=== PATIENT | male | born 1950 | race Caucasian/White ===

== ENCOUNTER 2017-08-16 20:06 | Emergency (ER) | payer MEDICARE, MEDICAID, SELFPAY ==
[2017-08-16 20:09] VITALS: BP 152/92; PULSE 91; RESP 28; TEMP 37.1; O2SAT 92; BMI 31.6
[2017-08-16 20:39] VITALS: O2SAT 92
[2017-08-16 20:45] VITALS: PULSE 86; RESP 22; O2SAT 93
--- NOTE | 2017-08-16 20:47 | EKG12_ITS ---
Test Reason : Blood Pressure : / mmHG Vent. Rate : 077 BPM Atrial Rate : 077 BPM P-R Int : 160 ms QRS Dur : 084 ms QT Int : 364 ms P-R-T Axes : 067 -22 040 degrees QTc Int : 411 ms Normal sinus rhythm Normal ECG Confirmed by ANJU HERNANDEZ MD ([id number]), associate entertainment editor KAMRAN CARBALLO ([id number] on 08/19/2017 1:47:09 PM Referred By: TANMAY Confirmed By:ANJU HERNANDEZ MD
--- NOTE | 2017-08-16 20:47 | RAD_ITS ---
STUDY: X-RAY CHEST REASON FOR EXAM: Male, 66 years old. Dyspnea TECHNIQUE: Frontal and lateral views of the chest. COMPARISON: None. FINDINGS: The lungs are clear and expanded. There is no demonstrated pleural abnormality. Normal size heart. Normal mediastinum and eri. Normal visualized pulmonary arteries. Normal visualized aortic arch and descending thoracic aorta. Normal visualized thoracic spine. Normal visualized ribs, clavicles, and shoulders. There is no demonstrated abnormality of the visualized soft tissue structures of the upper abdomen. RAD/Chest PA and Lateral IMPRESSION: Normal x-ray examination of the chest. Electronically Signed: Jesse Doe MD at 22:19 EDT , Service support ,
[2017-08-16 21:07] VITALS: PULSE 74; RESP 16
[2017-08-16] MEDS: Ipratropium/Albuterol Sulfate 3 ML AMPUL.NEB INHALATION (21:08)
[2017-08-16 21:20] LABS: Absolute Lymphocyte Count 1.37 X10^3/ul (0.83-4.51); Absolute Neutrophil Count 4.1 X10^3/uL (2.0-7.7); Basophil# 0.08 X10^3/uL; Basophil% 1.2 % (0-1); Eosinophil# 0.23 X10^3/uL; Eosinophils% 3.4 % (0-5); Hematocrit 39.6 % (40-54); Hemoglobin 12.8 g/dl (13.0-16.5); Lymphocyte # 1.37 X10^3/ul (4.0); Lymphocyte % 20.1 % (19-41); Mean Corp Hgb Conc 32.3 g/gl (32-36); Mean Corpuscular Hgb 32.1 pg (27.0-32.0); Mean Corpuscular Volume 99.2 fL (80-94); Mean Platelet Vol. 10.1 fl (6.2-12.0); Monocyte# 0.94 X10^3/uL; Monocyte% 13.8 % (0-10); Neutrophil # 4.09 X10^3/uL (2.7-7.7); Neutrophil % 59.9 % (47-70); POSITIVE COUNT NO; POSITIVE DIFFERENTIAL NO; POSITIVE MORPHOLOGY NO; Platelet Count 167 K/mm3 (150-450); RBC Distribution Width CV 13.5 % (11.6-14.6); RBC Distribution Width SD 47.7 fl (35.1-43.9); Red Blood Count 3.99 M/mm3 (4.6-6.2); White Blood Count 6.8 K/mm3 (4.4-11.0)
[2017-08-16 21:29] LABS: Anion Gap 8 (5-15); BUN 24 mg/dL (7-18); BUN/Creat Ratio 20.9 RATIO (10-20); Calcium,Total 8.8 mg/dL (8.5-10.1); Chloride 106 mmol/L (98-107); Creatinine, Serum 1.15 mg/dL (0.70-1.30); EST Glomerular Filtration Rate 68 mL/min (>60); Est Glom Filt Rate - Afr Amer 82 mL/min (>60); Estimated Creatinine Clearance 54.96 ml/min; Glucose 131 mg/dL (74-106); Potassium 4.1 mmol/L (3.5-5.1); Sodium Level 142 mmol/L (136-145)
--- NOTE | 2017-08-16 22:32 | ED.VISSUMM ---
- ER Visit Summary Date of Service: 08/16/17 Chief Complaint: [Shortness of breath] History of Present Illness: The patient is a 66 M [presents to the emergency department with cough and shortness of breath ?2 weeks. Patient states that cough is productive at times of some green and yellow sputum. Patient's had subjective fever at home intermittently. Patient has had chills. Patient was seen at the urgent care today and sent to the ER for low O2 sat of 94%. Patient has a history of COPD, diabetes, and hypertension. Patient is not on home oxygen. Patient has been using his inhaler at home. Patient denies recent travel or surgery. Patient denies any chest pain. Physical Examination: HEENT-PERRLA, EOMI. Cranial nerves II through XII grossly intact. TMs clear. Mucous membranes moist. No adenopathy. Cardiovascular-regular rate and rhythm without murmur or ectopy Lungs-good aeration bilaterally. Patient has some faint rhonchi and expiratory wheezes bilaterally. No accessory muscle use or retractions. No conversational dyspnea. Abdomen-normoactive bowel sounds, soft, nontender, no rebound or rigidity, no peritoneal signs. Extremities-intact ?4, normal range of motion, normal pulses, atraumatic[] Test Results: [EKG obtained on arrival showed a sinus rhythm with a ventricular rate of 77 bpm with no acute ST segment changes. CBC with differential obtained showed a white blood cell count of 6.8, hemoglobin 12.8, hematocrit 40, platelets 167. Chemistries unremarkable. Influenza was negative. Chest x-ray was normal. Blood cultures were ordered initially those will be pending.] Emergency Department Course and Treatment: [] Patient was given a DuoNeb aerosol and Solu-Medrol 125 mg IV. She was started on doxycycline p.o. Treatment Plan: [Patient will be started on prednisone and doxycycline. Patient will be given a albuterol MDI. Patient will be given a prescription for Tesjasson Mcarthures.] Disposition: [Discharged to home in stable condition. Patient advised to return if increasing shortness of breath or condition should worsen in any way] Impression: [Asthmatic bronchitis] This note was generated with [employer] software. It may contain incorrect words, spelling, and punctuation that were not noted in review of the chart prior to signing ED Disposition - Plan for ED Patient: Chief Complaint: Shortness of Breath Referrals: Marco Antonio Ingram MD [Primary Care Provider] -
[2017-08-16] MEDS: MethylPREDNISolone 125 MG/2 ML Vial IV (22:33)
--- NOTE | 2017-08-16 22:35 | ED.DCSUM_ITS ---
- ER Visit Summary Date of Service: 08/16/17 Chief Complaint: [Shortness of breath] History of Present Illness: The patient is a 66 M [presents to the emergency department with cough and shortness of breath ?2 weeks. Patient states that cough is productive at times of some green and yellow sputum. Patient's had subjective fever at home intermittently. Patient has had chills. Patient was seen at the urgent care today and sent to the ER for low O2 sat of 94%. Patient has a history of COPD, diabetes, and hypertension. Patient is not on home oxygen. Patient has been using his inhaler at home. Patient denies recent travel or surgery. Patient denies any chest pain. Physical Examination: HEENT-PERRLA, EOMI. Cranial nerves II through XII grossly intact. TMs clear. Mucous membranes moist. No adenopathy. Cardiovascular-regular rate and rhythm without murmur or ectopy Lungs-good aeration bilaterally. Patient has some faint rhonchi and expiratory wheezes bilaterally. No accessory muscle use or retractions. No conversational dyspnea. Abdomen-normoactive bowel sounds, soft, nontender, no rebound or rigidity, no peritoneal signs. Extremities-intact ?4, normal range of motion, normal pulses, atraumatic[] Test Results: [EKG obtained on arrival showed a sinus rhythm with a ventricular rate of 77 bpm with no acute ST segment changes. CBC with differential obtained showed a white blood cell count of 6.8, hemoglobin 12.8, hematocrit 40 , platelets 167. Chemistries unremarkable. Influenza was negative. Chest x- ray was normal. Blood cultures were ordered initially those will be pending.] Emergency Department Course and Treatment: [] Patient was given a DuoNeb aerosol and Solu-Medrol 125 mg IV. She was started on doxycycline p.o. Treatment Plan: [Patient will be started on prednisone and doxycycline. Patient will be given a albuterol MDI. Patient will be given a prescription for Tesjasson Mcarthures.] Disposition: [Discharged to home in stable condition. Patient advised to return if increasing shortness of breath or condition should worsen in any way] Impression: [Asthmatic bronchitis] This note was generated with [employer] software. It may contain incorrect words, spelling, and punctuation that were not noted in review of the chart prior to signing ED Disposition - Plan for ED Patient: Chief Complaint: Shortness of Breath Referrals: Marco Antonio Ingram MD [Primary Care Provider] -
--- NOTE | 2017-08-16 22:36 | ED.DEP ---
ED Disposition - Plan for ED Patient: Chief Complaint: Shortness of Breath Instructions: ED Bronchitis Asthmatic Prescriptions: Benzonatate [Tessalon Perle] 200 mg PO TID PRN PRN #20 cap PRN Reason: Cough Doxycycline Monohydrate 100 mg PO BID #20 cap Prednisone [Deltasone] 20 mg PO BID #6 tab Referrals: Marco Antonio Ingram MD [Primary Care Provider] - 3-5 Days
[2017-08-16] MEDS: Doxycycline 100 MG CAPSULE PO (23:00)
[2017-08-16 23:05] VITALS: BP 148/74; PULSE 79; RESP 18; O2SAT 96
== END 2017-08-16 23:12 | disposition home or self-care (01) ==
LOC: ED 21:01
PROVIDERS: Emergency Provider Emergency Medicine; Family Provider Family Medicine; PCP Family Medicine
DX: J44.1 Chronic obstructive pulmonary disease with (acute) exacerbation (principal); E11.9 Type 2 diabetes mellitus without complications; I10 Essential (primary) hypertension; Z79.84 Long term (current) use of oral hypoglycemic drugs; Z79.899 Other long term (current) drug therapy; Z72.0 Tobacco use
CPT/HCPCS: 71046; 80048; 85025; 87040; 87804; 93005; 94640; 96374; 99285

== ENCOUNTER 2023-01-23 01:57 | Emergency (ER) | payer MEDICARE, MEDICAID, SELFPAY ==
[2023-01-23 02:00] VITALS: BP 139/88; PULSE 77; PULSE 84; RESP 20; TEMP 36.6; O2SAT 94; O2SAT 95; BMI 33.6
[2023-01-23 02:06] VITALS: BP 139/88; PULSE 77; RESP 18; TEMP 36.6; O2SAT 95
--- NOTE | 2023-01-23 02:33 | CT_ITS ---
INDICATION: Right-sided abdominal pain with diarrhea and nausea EXAMINATION: CT Abdomen And Pelvis W/ Contrast Injection TECHNIQUE: Helically acquired images were obtained of the abdomen and pelvis following IV contrast. 2-D reconstructions reviewed. A radiation dose optimization technique was used for this scan. IV Contrast dosage and agent: 100 cc [id number] Oral contrast: None. COMPARISON: None. FINDINGS: LOWER CHEST: Mild linear scarring right lower lobe. Normal size heart with coronary artery disease. LIVER: Fatty infiltration of liver with nodular contour compatible with cirrhosis. No discrete mass. GALLBLADDER AND BILIARY TREE: No calcified gallstones identified. No gallbladder wall edema demonstrated. No significant biliary ductal dilation. PANCREAS: Fatty infiltration with no discrete mass or peripancreatic edema. SPLEEN: Normal size without focal cystic or solid mass. ADRENAL GLANDS: Unremarkable. KIDNEYS AND URETERS: Normal renal size and position. No perinephric edema or hydronephrosis. No concerning lesion. Subcentimeter simple appearing right renal cyst requiring no additional follow-up at this time. PERITONEUM: No significant free fluid. No peritoneal free air detected. RETROPERITONEUM: No retroperitoneal mass or pathologic fluid collection. BOWEL: Normal appendix inferior to cecum within right lower quadrant. Several borderline dilated loops of small bowel present but no focal transition/obstruction detected. Mild thickening versus underdistention of sigmoid colon. No pericolonic fat stranding detected. Mild gastric wall thickening versus underdistention. LYMPH NODES: No enlarged mesenteric or retroperitoneal lymph nodes. VESSELS: Atherosclerosis with focal aneurysmal dilatation of infrarenal aorta measuring up to 3.2 cm diameter. Mild aneurysmal dilatation of common iliac arteries, measuring up to 2 cm diameter on the left. URINARY BLADDER: Unremarkable as visualized. REPRODUCTIVE ORGANS: No pelvic masses. ABDOMINAL WALL: No acute findings or significant hernia defect. BONES: Degenerative disc space narrowing and vacuum disc changes at L4-5 and L5-S1. CT/Abdomen/Pelvis W IV Cont ONLY IMPRESSION: 1. Equivocal mild thickening versus underdistention of stomach and sigmoid colon. Correlate clinically for symptoms of gastritis and colitis. Follow-up as clinically warranted. 2. Borderline dilated loops of small bowel may represent mild ileus versus enteritis. 3. Cirrhotic and steatotic liver. Pancreatic steatosis also noted. 4. Mild 3.2 cm aneurysmal dilatation of infrarenal aorta. 5. Other nonurgent findings within body of report. Electronically Signed: Kenyon Blackwood MD at 5:04 EDT ,
[2023-01-23] MEDS: HYDROmorphone 0.5 MG/0.5 ML SYRINGE IV ×2 (02:51→04:22)
[2023-01-23] MEDS: Ondansetron 4 MG/2 ML Vial IV (02:52)
[2023-01-23] MEDS: 0.9% Normal Saline 1,000 ML 999 ML IV (02:52)
[2023-01-23 02:59] LABS: Absolute Lymphocyte Count 1.23 X10^3/uL (0.83-4.51); Absolute Neutrophil Count 6.3 X10^3/uL (2.0-7.7); Basophil# 0.08 X10^3/uL; Eosinophil# 0.14 X10^3/uL; Eosinophils% 1.7 % (0-5); Hematocrit 44.9 % (40-54); Hemoglobin 14.8 g/dL (13.0-16.5); Lymphocyte # 1.23 X10^3/ul (0.83-4.51); Lymphocyte % 14.6 % (19-41); Mean Corpuscular Hgb 31.8 pg (27.0-32.0); Mean Corpuscular Volume 96.4 fL (80-94); Mean Platelet Vol. 10.5 fl (6.2-12.0); Monocyte# 0.58 X10^3/uL; Monocyte% 6.9 % (0-10); NRBC Flagged by Analyzer 0 % (0-5); Neutrophil # 6.34 X10^3/uL (2.7-7.7); Neutrophil % 75.3 % (47-70); Platelet Count 231 K/mm3 (150-450); RBC Distribution Width CV 14.1 % (11.6-14.6); RBC Distribution Width SD 49.9 fl (35.1-43.9); Red Blood Count 4.66 M/mm3 (4.6-6.2); White Blood Count 8.4 K/mm3 (4.4-11.0)
--- NOTE | 2023-01-23 03:23 | EDS_ITS ---
HPI History of Present Illness Chief Complaint: Abd Pain Informant: patient Narrative Narrative: Patient is a 72-year-old male with past medical history of diabetes as well as hypertension and COPD. He states he has had loose stool/diarrhea for 10 to 14 days. He denies any new medications or sick contacts he denies any travel outside the country or recent antibiotic use. He states that this evening he decided to eat rice covered and cheese and a type of dressing and after doing so noticed pain more so in the right upper quadrant to mid epigastric region. He states that he has Vicodin secondary to chronic arthritis pain and took 1 of these without any symptom improvement and therefore comes in for evaluation [facility] Medical History COPD (chronic obstructive pulmonary disease) Diabetes HTN (hypertension) Home Medications albuterol sulfate 90 mcg/actuation aerosol inhaler (Ventolin HFA) 1 puff inhalation Q4H PRN PRN Wheezing 08/16/17 [History Last Taken Unknown] amlodipine 5 mg tablet 5 mg PO DAILY 08/16/17 [History Last Taken Unknown] benzonatate 100 mg capsule 200 mg (2 x 100 mg) PO TID PRN PRN Cough #20 caps 08/16/17 [Rx Last Taken Unknown] doxycycline monohydrate 100 mg capsule 100 mg PO BID #20 caps 08/16/17 [Rx Last Taken Unknown] hydrocodone 10 mg-acetaminophen 325 mg tablet 1 ea PO Q4H PRN Pain 08/16/17 [History Last Taken Unknown] metformin 500 mg tablet 500 mg PO BID 08/16/17 [History Last Taken Unknown] pioglitazone 15 mg tablet 15 mg PO DAILY 08/16/17 [History Last Taken Unknown] prednisone 20 mg tablet 20 mg PO BID #6 tabs 08/16/17 [Rx Last Taken Unknown] valsartan 160 mg tablet 160 mg PO DAILY 08/16/17 [History Last Taken Unknown] Allergy/AdvReac Type Severity Reaction Status Date / Time codeine Allergy Nausea Verified 01/23/23 02:10 oxycodone AdvReac EMESIS Verified 01/23/23 02:10 Social History Smoking Status: Current every day smoker tobacco type: cigarettes ROS ROS ED Constitutional Constitutional ED: Denies chills or fever(s) ENT ENT ED: Denies sore throat Cardiovascular Cardiovascular: Denies chest pain Respiratory/Chest Respiratory/Chest: Reports cough; Denies dyspnea Gastrointestinal Gastrointestinal: Reports abdominal pain, diarrhea and nausea; Denies vomiting Genitourinary Genitourinary ED: Denies dysuria Musculoskeletal Musculoskeletal: Reports arthralgias Integumentary Denies rash Neurologic Neurologic: Denies headache(s) Hematologic/Lymphatic Hematologic/Lymphatic: Denies easy bleeding or easy bruising EXAM Physical Exam Const Vital Signs: 01/23/23 02:00 01/23/23 02:00 01/23/23 02:06 Temperature 98 F 98 F 98 F Temperature Source Oral Temporal Temporal Pulse Rate 84 77 77 Respiratory Rate 20 H 20 H 18 Blood Pressure 139/88 H 139/88 H 139/88 H Blood Pressure Mean 105 105 105 Pulse Ox 94 95 95 Oxygen Delivery Method Room Air Room Air Room Air 01/23/23 04:00 Temperature Temperature Source Pulse Rate 83 Respiratory Rate 16 Blood Pressure 171/91 H Blood Pressure Mean 117 Pulse Ox 98 Oxygen Delivery Method Positive well nourished and well developed General Appearance ED: well developed HEENT Reports moist mucous membranes HEENT Narrative: No signs of infection noted in the posterior pharynx Eyes PERRL and EOMs intact bilaterally General Eye ED: Negative for scleral icterus Neck supple and no JVD Resp normal respiratory effort Resp Narrative: Breath sounds are diminished throughout with diffuse expiratory wheeze consistent with history of COPD No signs of respiratory distress however Cardio regular rate and regular rhythm Rate: other Other Details: Radial and carotid pulses are equal and symmetric GI non-distended GI Narrative: Abdomen is soft and nondistended with hyperactive bowel sounds. Patient has pain with palpation in the midepigastric and right upper quadrant. No voluntary guarding or rigidity. No pulsatile mass or fluid wave. Negative Adame sign. Auscultation: hyperactive bowel sounds Palpation: soft Back/Spine no CVA tenderness Extremity normal to inspection Extremity Narrative: Negative Homans' sign bilaterally Neuro oriented x3, CN's II-XII intact bilaterally and no sensory deficits noted Sensorium / Orientation: alert Motor Exam: strength 5/5 throughout Psych mental status grossly normal Skin no rashes or lesions noted General Skin Exam: Negative for jaundice MDM MDM MDM Narrative Medical decision making narrative: Patient presented to the ER hypertensive but has a past medical history of this and otherwise with stable vitals. He reported that he had increasing abdominal pain this evening/morning which is why he presented to the ER. He stated the pain began after eating food that had a higher fat content. With the pain localized more to the midepigastric and right upper quadrant region there is high likelihood this could be biliary colic versus cholecystitis versus pancreatitis. With report of persistent diarrhea there is also concern he is got an infectious diarrhea or inflammatory colitis. Basic blood work was obtained and shows no white count or lactic acidosis liver enzymes revealed no clinically significant findings and his lipase is normal at 50. CT scan revealed no signs of acute cholecystitis or bowel obstruction. It did document potential ileus but patient's been having liquidy bowel movements which goes against this. His intestines are inflamed on CT scan and he has had persistent diarrhea but this could all be inflammatory or secretory and not necessarily bacterial and therefore I do not feel there is need to provide antibiotics until a stool sample can be obtained. On reevaluation the patient is resting comfortably and his abdomen remains soft and nonsurgical and his pain has resolved after treatment. At this time I do feel he will require outpatient ultrasound and/or HIDA scan to further assess his gallbladder but as he does not have signs of acute cholecystitis this can be done on an outpatient basis especially as his pain has been resolved and therefore he can be discharged home and follow-up with general surgery as an outpatient History & Record Review Discussion w/independent historian: Patient Lab Data Attestation: I reviewed the patient's lab results. Labs: Laboratory Results - last 24 hr 01/23/23 02:20 WBC 8.4 RBC 4.66 Hgb 14.8 Hct 44.9 MCV 96.4 H MCH 31.8 MCHC 33.0 RDW Std Deviation 49.9 H RDW Coeff of Jordan 14.1 Plt Count 231 MPV 10.5 Immature Gran % (Auto) 0.500 Neut % (Auto) 75.3 H Lymph % (Auto) 14.6 L Kaufman % (Auto) 6.9 Eos % (Auto) 1.7 Baso % (Auto) 1.0 Absolute Neuts (auto) 6.3 Absolute Lymphs (auto) 1.23 Nucleated RBC % 0 Sodium 138 Potassium 4.5 Chloride 105 Carbon Dioxide 25.0 Anion Gap 8 BUN 24 H Creatinine 1.38 H Estim Creat Clear Calc 42.09 Est GFR (MDRD) Af Amer 65 Est GFR (MDRD) Non-Af 54 L BUN/Creatinine Ratio 17.4 Glucose 173 H Lactic Acid 0.9 Calcium 10.0 Total Bilirubin 0.40 Direct Bilirubin 0.08 AST 13 L ALT 20 Alkaline Phosphatase 82 Total Protein 8.5 H Albumin 4.0 Globulin 4.5 H Lipase 50 Radiography Diagnostic Testing: Clinical Impression(s) from Imaging Studies Abdomen/Pelvis CT 01/23/23 02:33 IMPRESSION: 1. Equivocal mild thickening versus underdistention of stomach and sigmoid colon. Correlate clinically for symptoms of gastritis and colitis. Follow-up as clinically warranted. 2. Borderline dilated loops of small bowel may represent mild ileus versus enteritis. 3. Cirrhotic and steatotic liver. Pancreatic steatosis also noted. 4. Mild 3.2 cm aneurysmal dilatation of infrarenal aorta. 5. Other nonurgent findings within body of report. Electronically Signed: Kenyon Blackwood MD at 5:04 EDT , Discharge Plan Triage Chief Complaint: Abd Pain ED Provider: Destin French Dx/Rx/DC Orders Clinical Impression: Diarrhea, Gastritis, Biliary colic, Non-insulin dependent diabetes mellitus, Hypertension Instructions: Treating Diarrhea, ED Gallstones with Biliary Colic Prescriptions: No Action pioglitazone 15 MG tablet 15 mg PO DAILY metformin 500 MG tablet 500 mg PO BID amlodipine 5 MG tablet 5 mg PO DAILY hydrocodone-acetaminophen 1 EACH tablet 1 ea PO Q4H PRN (Reason: Pain) albuterol sulfate [Ventolin HFA] 1 INHALER inhaler 1 puff inhalation Q4H PRN PRN (Reason: Wheezing) valsartan 160 MG tablet 160 mg PO DAILY doxycycline monohydrate 100 MG capsule 100 mg PO BID Qty: 20 0RF prednisone 20 MG tablet 20 mg PO BID Qty: 6 0RF Rx Instructions: With food benzonatate 100 MG capsule 200 mg PO TID PRN PRN (Reason: Cough) Qty: 20 0RF Other Ambulatory Orders: Gallbladder (Routine) Facility: [facility] - Location: [facility] Ordered By: Dr. Destin French Primary Care Provider: Marco Antonio Ingram Referrals: Marco Antonio Ingram MD [Primary Care Provider] - Ashleigh Francis MD [Med Staff - Active Staff] - Activity Restrictions/Additional Instructions: Please obtain your outpatient gallbladder ultrasound to further assess the cause of your abdominal pain. Also follow-up with general surgery to discuss potential gallbladder removal and/or HIDA scan if necessary. Please also discuss with your family physician about obtaining stool sample studies based on your persistent diarrhea. Eat smaller more frequent meals that are bland in nature and stay away from greasy or fatty foods as this could exacerbate your symptoms. If you have any further concerns please return for repeat evaluation Disposition Disposition: Home, Self Care
[2023-01-23 03:40] LABS: Lactic Acid 0.9 mmol/L (0.4-1.9)
[2023-01-23 03:44] LABS: AST(SGOT) 13 U/L (15-37); Alanine Aminotransfer ALT/SGPT 20 U/L (16-61); Alkaline Phosphatase 82 U/L (45-117); Anion Gap 8 (5-15); BUN 24 mg/dL (7-18); BUN/Creat Ratio 17.4 RATIO (10-20); Bilirubin, Direct 0.08 mg/dL (0.00-0.30); Chloride 105 mmol/L (98-107); Creatinine, Serum 1.38 mg/dL (0.70-1.30); EST Glomerular Filtration Rate 54 mL/min (>60); Est Glom Filt Rate - Afr Amer 65 mL/min (>60); Estimated Creatinine Clearance 42.09 ml/min; Globulin 4.5 g/dL (2.2-4.2); Glucose 173 mg/dL (74-106); Lipase 50 U/L (13-75); Potassium 4.5 mmol/L (3.5-5.1); Protein, Total 8.5 g/dL (6.4-8.2); Sodium Level 138 mmol/L (136-145)
[2023-01-23 04:00] VITALS: BP 171/91; PULSE 83; RESP 16; O2SAT 98
[2023-01-23] MEDS: Mag Hydrox/Al Hydrox/Simeth 30 ML UDC PO (04:26)
[2023-01-23] MEDS: Famotidine 200 MG/20 ML MDV 20 MG in 0.9% Normal Saline (Pres. free 8 ML 300 MG IV (04:27)
[2023-01-23 05:30] VITALS: BP 145/90
== END 2023-01-23 05:31 | disposition home or self-care (01) ==
PROVIDERS: Emergency Provider Emergency Medicine; PCP Family Medicine; Visit Provider Emergency Medicine
DX: K29.70 Gastritis, unspecified, without bleeding (principal); J44.9 Chronic obstructive pulmonary disease, unspecified; E11.9 Type 2 diabetes mellitus without complications; R19.7 Diarrhea, unspecified; F17.210 Nicotine dependence, cigarettes, uncomplicated; I10 Essential (primary) hypertension; K80.50 Calculus of bile duct without cholangitis or cholecystitis without obstruction; Z79.899 Other long term (current) drug therapy; Z79.84 Long term (current) use of oral hypoglycemic drugs
CPT/HCPCS: 74177; 80048; 80076; 83605; 83690; 85025; 96361; 96365; 96375; 96376; 99284; Q9967; A4216; J2405; J3490

== ENCOUNTER 2023-09-26 20:41 | Inpatient (IN) | payer MEDICARE, MEDICAID, SELFPAY ==
[2023-09-26 20:42] VITALS: BP 126/86; PULSE 78; RESP 20; TEMP 36.4; O2SAT 92; BMI 32.7
--- NOTE | 2023-09-26 20:46 | EKG12_ITS ---
Test Reason : DYSRHYTHMIA Blood Pressure : / mmHG Vent. Rate : 074 BPM Atrial Rate : 074 BPM P-R Int : 168 ms QRS Dur : 094 ms QT Int : 370 ms P-R-T Axes : 053 -28 052 degrees QTc Int : 410 ms Normal sinus rhythm Incomplete right bundle branch block Borderline ECG Confirmed by DAVID JOHN, ANJU ([id number]), publication editor MARLENE MOE ([id number]) on 09/29/2023 11:36:34 AM Referred By: LINNEA Confirmed By:ANJU HERNANDEZ MD
[2023-09-26 20:55] VITALS: O2SAT 94
[2023-09-26 21:05] LABS: Absolute Lymphocyte Count 2.14 X10^3/uL (0.83-4.51); Absolute Neutrophil Count 3.7 X10^3/uL (2.0-7.7); Basophil# 0.09 X10^3/uL; Basophil% 1.3 % (0-1); Eosinophil# 0.29 X10^3/uL; Eosinophils% 4.2 % (0-5); Hematocrit 41.6 % (40-54); Hemoglobin 13.4 g/dL (13.0-16.5); Lymphocyte # 2.14 X10^3/ul (0.83-4.51); Lymphocyte % 30.9 % (19-41); Mean Corp Hgb Conc 32.2 g/dL (32-36); Mean Corpuscular Hgb 31.5 pg (27.0-32.0); Mean Corpuscular Volume 97.7 fL (80-94); Mean Platelet Vol. 9.7 fl (6.2-12.0); Monocyte# 0.64 X10^3/uL; Monocyte% 9.2 % (0-10); NRBC Flagged by Analyzer 0 % (0-5); Neutrophil # 3.71 X10^3/uL (2.7-7.7); Neutrophil % 53.7 % (47-70); Platelet Count 235 K/mm3 (150-450); RBC Distribution Width CV 14.4 % (11.6-14.6); Red Blood Count 4.26 M/mm3 (4.6-6.2); White Blood Count 6.9 K/mm3 (4.4-11.0)
--- NOTE | 2023-09-26 21:07 | ED.VIS.DYS ---
HPI History of Present Illness Chief Complaint: Shortness of Breath Narrative Narrative: 72-year-old male presenting with shortness of breath. Patient states he is chronically short of breath due to smoking and asthma. Patient states that over the last week or so he has been more short of breath with exertion. He states that he gets short of breath now just walking to the bathroom or into the kitchen. He states his pulse ox is staying in the 90s but when he walks he gets a headache and gets a sharp pain in his chest and he states he has to sit down for 10 to 15 minutes to recover. Patient denies lower extremity edema but may have some swelling in the abdomen. Patient denies history of CHF. He does have a history of COPD/asthma. Patient denies fever, chills. [facility] Medical History COPD (chronic obstructive pulmonary disease) Diabetes HTN (hypertension) Home Medications albuterol sulfate 90 mcg/actuation aerosol inhaler (Ventolin HFA) 1 puff inhalation Q4H PRN PRN Wheezing 08/16/17 [History Last Taken Unknown] amlodipine 5 mg tablet 5 mg PO DAILY 08/16/17 [History Last Taken Unknown] benzonatate 100 mg capsule 200 mg (2 x 100 mg) PO TID PRN PRN Cough #20 caps 08/16/17 [Rx Last Taken Unknown] doxycycline monohydrate 100 mg capsule 100 mg PO BID #20 caps 08/16/17 [Rx Last Taken Unknown] hydrocodone 10 mg-acetaminophen 325 mg tablet 1 ea PO Q4H PRN Pain 08/16/17 [History Last Taken Unknown] metformin 500 mg tablet 500 mg PO BID 08/16/17 [History Last Taken Unknown] pioglitazone 15 mg tablet 15 mg PO DAILY 08/16/17 [History Last Taken Unknown] prednisone 20 mg tablet 20 mg PO BID #6 tabs 08/16/17 [Rx Last Taken Unknown] valsartan 160 mg tablet 160 mg PO DAILY 08/16/17 [History Last Taken Unknown] Allergy/AdvReac Type Severity Reaction Status Date / Time codeine Allergy Nausea Verified 09/26/23 20:42 oxycodone AdvReac EMESIS Verified 09/26/23 20:42 Social History Smoking Status: Current every day smoker tobacco type: cigarettes ROS ROS ED Constitutional Constitutional ED: Denies chills, fever(s) or sweats Eyes Eyes: Denies blurry vision or change in vision ENT ENT ED: Denies ear pain or sore throat Cardiovascular Cardiovascular: Denies chest pain, palpitations or racing heartbeat Respiratory/Chest Respiratory/Chest: Reports dyspnea and dyspnea on exertion; Denies cough or sputum Gastrointestinal Gastrointestinal: Denies abdominal pain, constipation, diarrhea, nausea or vomiting Genitourinary Genitourinary ED: Denies dysuria, hematuria or urinary frequency Musculoskeletal Musculoskeletal: Denies arthralgias, myalgias or neck pain Integumentary Denies abscess, Abrasions or rash Neurologic Neurologic: Denies headache(s), paresthesias or weakness Psychiatric Psychiatric: Denies anxiety, depression, suicidal ideation or suicidal thoughts Endocrine Endocrinology: Denies polydipsia or polyuria EXAM Physical Exam Const Vital Signs: 09/26/23 20:42 09/26/23 20:54 09/26/23 20:55 Temperature 97.6 F L Temperature Source Temporal Pulse Rate 78 Respiratory Rate 20 H Respiratory Effort Short of Breath Respiratory Depth Normal Blood Pressure 126/86 H Blood Pressure Mean 99 Pulse Ox 92 Oxygen Delivery Method Room Air Room Air Room Air 09/26/23 21:52 09/26/23 23:00 Temperature Temperature Source Pulse Rate 67 63 Respiratory Rate 25 H 18 Respiratory Effort Respiratory Depth Blood Pressure 118/76 98/65 Blood Pressure Mean 90 76 Pulse Ox 92 91 Oxygen Delivery Method Room Air Room Air Positive well nourished General Appearance ED: NAD; Negative for pallor HEENT Reports moist mucous membranes Eyes PERRL and EOMs intact bilaterally Resp normal respiratory effort Auscultation: diminished lung sounds bilateral lower Cardio regular rate and regular rhythm GI non-tender and non-distended Extremity normal to inspection General Extremety ED: Yes edema General Extremity: edema Neuro oriented x3 and CN's II-XII intact bilaterally Sensorium / Orientation: alert Motor Exam: strength 5/5 throughout Psych mental status grossly normal Skin no wounds General Skin Exam: Negative for jaundice or pallor MDM MDM MDM Narrative Medical decision making narrative: Patient presented with shortness of breath on exertion. It has really been worse over the last week. He has history of COPD but does not feel like he is wheezing. No fevers or chills. No cough. Differential includes ACS, CHF, pneumonia, COVID, influenza, RSV, dehydration, anemia, electro abnormalities. IV line was established. CBC was obtained to assess white blood cell count, hemoglobin, platelets. BMP to assess renal function, electrolytes, glucose. High-sensitivity troponin and EKG to assess for ischemia/dysrhythmia. BNP to assess for CHF. CBC shows normal white blood cell count 6.9. Hemoglobin 13.4. Platelets are 235. Creatinine 1.70. His baseline creatinine is 1.38. High-sensitivity troponin 7. BNP 12.4. Chest x-ray on my interpretation shows no acute cardiopulmonary process. The radiologist interprets this and agrees. Patient was ambulated and pulse ox dropped to 80% on room air and he became very dyspneic and it took him about 2 minutes to get back up to 90. Given this we did obtain a CTA which does not show evidence of PE or dissection however it does show findings suggestion of a right bronchopneumonia. Patient will be given Rocephin and azithromycin. Discussed with hospitalist for admission. He will be given IV fluids now that his cardiac workup is normal. Impression: 1. Hypoxic respiratory failure 2. Bronchopneumonia Lab Data Attestation: I reviewed the patient's lab results. Labs: Laboratory Results - last 24 hr 09/26/23 20:57 WBC 6.9 RBC 4.26 L Hgb 13.4 Hct 41.6 MCV 97.7 H MCH 31.5 MCHC 32.2 RDW Std Deviation 52.0 H RDW Coeff of [place] 14.4 Plt Count 235 MPV 9.7 Immature Gran % (Auto) 0.700 Neut % (Auto) 53.7 Lymph % (Auto) 30.9 [place] % (Auto) 9.2 Eos % (Auto) 4.2 Baso % (Auto) 1.3 H Absolute Neuts (auto) 3.7 Absolute Lymphs (auto) 2.14 Nucleated RBC % 0 Sodium 136 Potassium 4.6 Chloride 105 Carbon Dioxide 28.0 Anion Gap 3 L BUN 24 H Creatinine 1.70 H Estim Creat Clear Calc 39.53 Est GFR (MDRD) Af Amer 51 L Est GFR (MDRD) Non-Af 42 L BUN/Creatinine Ratio 14.1 Glucose 148 H Calcium 9.7 Troponin I High Sens 7 B-Natriuretic Peptide 12.4 Radiography Diagnostic Testing: Clinical Impression(s) from Imaging Studies Chest X-Ray 09/26/23 21:12 IMPRESSION: No radiographic evidence of acute cardiopulmonary disease. Electronically Signed: Duane MendosaChandler Nelson DO at 21:28 EDT , Chest CTA 09/26/23 22:03 IMPRESSION: 1. No evidence of pulmonary artery embolus. 2. Subtle lobulations of the hepatic capsule suggesting cirrhosis. 3. Findings suggestive of a bronchopneumonia on the right. Electronically Signed: Duane VChandler Nelson DO at 23:06 EDT , Discharge Plan Triage Chief Complaint: Shortness of Breath ED Provider: Santi Figueroa Dx/Rx/DC Orders Prescriptions: No Action pioglitazone 15 MG tablet 15 mg PO DAILY metformin 500 MG tablet 500 mg PO BID amlodipine 5 MG tablet 5 mg PO DAILY hydrocodone-acetaminophen 1 EACH tablet 1 ea PO Q4H PRN (Reason: Pain) albuterol sulfate [Ventolin HFA] 1 INHALER inhaler 1 puff inhalation Q4H PRN PRN (Reason: Wheezing) valsartan 160 MG tablet 160 mg PO DAILY doxycycline monohydrate 100 MG capsule 100 mg PO BID Qty: 20 0RF prednisone 20 MG tablet 20 mg PO BID Qty: 6 0RF Rx Instructions: With food benzonatate 100 MG capsule 200 mg PO TID PRN PRN (Reason: Cough) Qty: 20 0RF Primary Care Provider: Marco Antonio Ingram Referrals: Marco Antonio Ingram MD [Primary Care Provider] -
--- NOTE | 2023-09-26 21:12 | RAD_ITS ---
EXAM: XR CHEST, 1 VIEW CLINICAL INDICATION: chest pain TECHNIQUE: Frontal view of the chest. COMPARISON: No relevant prior studies available. FINDINGS: LUNGS AND PLEURAL SPACES: No significant abnormality. No consolidation or edema. No pneumothorax. No effusion. HEART: No significant abnormality. Cardiac silhouette not enlarged. MEDIASTINUM: Central airways and mediastinal contour are unremarkable. BONES/JOINTS: No significant abnormality. No acute fracture. SOFT TISSUES: No significant abnormality. RAD/Chest 1 View (Portable) IMPRESSION: No radiographic evidence of acute cardiopulmonary disease. Electronically Signed: Duane Nelson DO at 21:28 EDT ,
[2023-09-26 21:24] LABS: Anion Gap 3 (5-15); BUN 24 mg/dL (7-18); BUN/Creat Ratio 14.1 RATIO (10-20); Calcium,Total 9.7 mg/dL (8.5-10.1); Chloride 105 mmol/L (98-107); EST Glomerular Filtration Rate 42 mL/min (>60); Est Glom Filt Rate - Afr Amer 51 mL/min (>60); Estimated Creatinine Clearance 39.53 ml/min; Glucose 148 mg/dL (74-106); Potassium 4.6 mmol/L (3.5-5.1); Sodium Level 136 mmol/L (136-145); Troponin-I HS 7 pg/mL (3.0-78.0)
[2023-09-26 21:37] LABS: BNP,B-Type NATRIURETIC PEPTIDE 12.4 pg/mL (0-100)
[2023-09-26 21:52] VITALS: BP 118/76; PULSE 67; RESP 25; O2SAT 92
--- NOTE | 2023-09-26 22:03 | CT_ITS ---
EXAM: CT ANGIOGRAPHY CHEST WITHOUT AND WITH INTRAVENOUS CONTRAST CLINICAL INDICATION: dypsnea TECHNIQUE: Helically acquired angiography images were obtained of the chest without and with intravenous contrast. This CT exam was performed using one or more of the following dose reduction techniques: automated exposure control, adjustment of the mA and/or kV according to patient size, and/or use of iterative reconstruction technique. MIP reconstructed images were created and reviewed. CONTRAST: IV 100mL [id number] COMPARISON: Chest radiograph on the same date. FINDINGS: PULMONARY ARTERIES: No significant abnormality. Normal in caliber. No evidence of pulmonary embolism. AORTA: Atherosclerosis of the aorta and its branch vessels. Normal in caliber. No evidence of dissection. GREAT VESSELS OF AORTIC ARCH: No significant abnormality. Normal in caliber. No evidence of dissection. LUNGS AND PLEURAL SPACES: Scattered alveolar opacities in the right middle and right lower lobe. Right lower lobe and right middle lobe peribronchial thickening and to a lesser extent in the right upper lobe. Minimal intraluminal filling defects are identified particularly in the right lower lobe bronchi. No mass. No pleural effusion or thickening. No pneumothorax. HEART: Coronary artery calcifications. Heart size is normal. No pericardial effusion. MEDIASTINUM: No significant abnormality. No mediastinal or hilar adenopathy. Esophagus is unremarkable. No hiatal hernia. THYROID: No significant abnormality. No thyroid lesions. BONES/JOINTS: No significant abnormality. No suspicious lytic or blastic abnormality. LIVER: Subtle lobulations of the hepatic capsule suggesting cirrhosis. CT/CTA Chest W/WO Contrast IMPRESSION: 1. No evidence of pulmonary artery embolus. 2. Subtle lobulations of the hepatic capsule suggesting cirrhosis. 3. Findings suggestive of a bronchopneumonia on the right. Electronically Signed: Duane Nelson DO at 23:06 EDT ,
[2023-09-26 23:00] VITALS: BP 98/65; PULSE 63; RESP 18; O2SAT 91
--- NOTE | 2023-09-26 23:40 | HP.PCM_ITS ---
[facility] - General General Date of Admission: 09/26/23 Date of Service: 09/26/23 Chief Complaint: Shortness of breath [facility] Narrative KENIA CHIU, is a 72 M who presents to the emergency room with chief complaint of shortness of breath. Patient states that over the past week he has progressively become more short of breath. He has a significant past medical history of asthma/COPD and is a smoker. Today he notified his primary care physician of symptoms and was instructed to proceed to the emergency room. CT angiogram of the chest shows a right bronco pneumonia with elevated white blood cell count. Patient walks for any length of time and desaturates to 84% and took over 2 minutes to recover to oxygen saturation greater than 90%. He will be admitted to general medical floor treated for community-acquired pneumonia. [facility] Medical History (Updated 09/26/23 @ 23:[address] Jaiden Weathers MD) COPD (chronic obstructive pulmonary disease) Diabetes HTN (hypertension) Home Medications albuterol sulfate 90 mcg/actuation aerosol inhaler (Ventolin HFA) 1 puff inhalation Q4H PRN PRN Wheezing 08/16/17 [History Last Taken 09/26/23] amlodipine 5 mg tablet 5 mg PO DAILY 08/16/17 [History Last Taken 09/26/23] hydrocodone 10 mg-acetaminophen 325 mg tablet 1 ea PO Q4H PRN Pain 08/16/17 [History Last Taken 09/26/23] metformin 500 mg tablet 500 mg PO BID 08/16/17 [History Last Taken 09/26/23] valsartan 160 mg tablet 160 mg PO DAILY 08/16/17 [History Last Taken 09/25/23] fluticasone propionate 230 mcg-salmeterol 21 mcg/actuation HFA inhaler (Advair HFA) 2 puff inhalation BID 09/26/23 [History Last Taken 09/26/23] pioglitazone 45 mg tablet 45 mg PO DAILY 09/26/23 [History Last Taken 09/26/23] tiotropium bromide 2.5 mcg/actuation mist for inhalation (Spiriva Respimat) 2 puff inhalation DAILY 09/26/23 [History Last Taken 09/26/23] Allergy/AdvReac Type Severity Reaction Status Date / Time codeine Allergy Nausea Verified 09/26/23 20:42 oxycodone AdvReac EMESIS Verified 09/26/23 20:42 Social History Smoking Status: Current every day smoker tobacco type: cigarettes ROS Constitutional Constitutional: Reports fatigue; Denies chills or fever(s) Eyes Eyes: Denies change in vision ENT HEENT: Denies abnormal hearing Respiratory/Chest Respiratory/Chest: Reports cough, shortness of breath with exertion and wheezing Gastrointestinal Gastrointestinal: Denies abdominal pain Genitourinary Genitourinary: Denies dysuria Musculoskeletal Musculoskeletal: Denies back pain Neurologic Neurologic: Denies abnormal gait or abnormal speech Psychiatric Psychiatric: Denies anxiety Endocrine Endocrinology: Denies polydipsia Vital Signs Vital Signs Vital Signs: 09/26/23 20:42 09/26/23 20:54 09/26/23 20:55 Temperature 97.6 F L Temperature Source Temporal Pulse Rate 78 Respiratory Rate 20 H Respiratory Effort Short of Breath Respiratory Depth Normal Blood Pressure 126/86 H Blood Pressure Mean 99 Pulse Ox 92 Oxygen Delivery Method Room Air Room Air Room Air 09/26/23 21:52 09/26/23 23:00 Temperature Temperature Source Pulse Rate 67 63 Respiratory Rate 25 H 18 Respiratory Effort Respiratory Depth Blood Pressure 118/76 98/65 Blood Pressure Mean 90 76 Pulse Ox 92 91 Oxygen Delivery Method Room Air Room Air Weight Weight: 196 lb 6.4 oz Body Mass Index (BMI) 32.7 Physical Exam Const alert and oriented x3 General Appearance: cooperative and well developed HEENT normocephalic and head/scalp atraumatic Eyes PERRL and EOMs intact bilaterally Neck no lymphadenopathy Lymph Lymphatic: no lymphadenopathy noted Resp Auscultation: rhonchi right upper and wheezes Cardio regular rate, regular rhythm, S1 normal heart sound and S2 normal heart sound GI normal to inspection, nondistended, normoactive bowel sounds Extremity normal capillary refill Skin General Skin Exam: no breakdown Neuro no focal motor deficits and no sensory deficits noted Psych thought process normal, cooperative and affect normal Appearance: appropriate Results Lab / Micro Data 09/26/23 20:57 09/26/23 20:57 Labs: Laboratory Results - last 24 hr 09/26/23 20:57: WBC 6.9, RBC 4.26 L, Hgb 13.4, Hct 41.6, MCV 97.7 H, MCH 31.5, MCHC 32.2, RDW Std Deviation 52.0 H, RDW Coeff of [place] 14.4, Plt Count 235, MPV 9.7, Immature Gran % (Auto) 0.700, Neut % (Auto) 53.7, Lymph % (Auto) 30.9, [place] % (Auto) 9.2, Eos % (Auto) 4.2, Baso % (Auto) 1.3 H, Absolute Neuts (auto) 3.7, Absolute Lymphs (auto) 2.14, Nucleated RBC % 0, Sodium 136, Potassium 4.6, Chloride 105, Carbon Dioxide 28.0, Anion Gap 3 L, BUN 24 H, Creatinine 1.70 H, Estim Creat Clear Calc 39.53, Est GFR (MDRD) Af Amer 51 L, Est GFR (MDRD) Non-Af 42 L, BUN/Creatinine Ratio 14.1, Glucose 148 H, Calcium 9.7, Troponin I High Sens 7, B-Natriuretic Peptide 12.4 Micro: Microbiology 09/26/23 21:31 Mucosa - Nose SARS-CoV-2, Influenza & RSV (PCR) - Final Imaging Radiology Impression Chest X-Ray 09/26/23 21:12 IMPRESSION: No radiographic evidence of acute cardiopulmonary disease. Electronically Signed: Duane Nelson DO at 21:28 EDT , Chest CTA 09/26/23 22:03 IMPRESSION: 1. No evidence of pulmonary artery embolus. 2. Subtle lobulations of the hepatic capsule suggesting cirrhosis. 3. Findings suggestive of a bronchopneumonia on the right. Electronically Signed: Duane Nelson DO at 23:06 EDT , Assessment & Plan Assessment/Plan (1) Bronchopneumonia: (2) Hypoxia: PLAN: Plan 1 bronchopneumonia?admit patient to general medical floor, Rocephin and azithromycin for community-acquired pneumonia protocol, albuterol inhalation treatment every 4 hours as needed and add oxygen as needed protocol?it may be possible to discharge patient home with home ongoing oxygen if otherwise stable tomorrow. 2. Hypoxia?oxygen per protocol 3. Hypertension?continue routine home medication 4. Diabetes?continue routine home regimen 5. DVT prophylaxis?low molecular weight heparin Charges/Coding Visit Charges Inpatient E&M: 56777 Init Hosp L2
[2023-09-26 23:41] VITALS: BP 121/63; PULSE 65; RESP 22; TEMP 36.8; O2SAT 93
[2023-09-26 23:42] VITALS: BP 121/69; PULSE 62; RESP 20; TEMP 36.8; O2SAT 93
[2023-09-26] MEDS: Ceftriaxone 1 GM/50 ML BAG IV (23:48)
[2023-09-27] VITALS (12 sets, daily range): BP systolic 111–144; BP diastolic 56–87; PULSE 63–93; RESP 17–22; TEMP 36.3–36.6; O2SAT 91–97; BMI 32.1
[2023-09-27] MEDS: 0.9% Normal Saline (1000mL) 1,000 ML 999 ML IV (00:09)
[2023-09-27] MEDS: Azithromycin 500 MG in Dextrose 5%-Water (250mL Bag) 250 ML 250 MG IV ×2 (00:40→22:22)
[2023-09-27 07:09] LABS: Absolute Neutrophil Count 3.4 X10^3/uL (2.0-7.7); Basophil# 0.06 X10^3/uL; Eosinophil# 0.27 X10^3/uL; Eosinophils% 4.6 % (0-5); Hematocrit 39.6 % (40-54); Hemoglobin 12.5 g/dL (13.0-16.5); Lymphocyte % 25.4 % (19-41); Mean Corp Hgb Conc 31.6 g/dL (32-36); Mean Corpuscular Hgb 31.1 pg (27.0-32.0); Mean Corpuscular Volume 98.5 fL (80-94); Mean Platelet Vol. 9.9 fl (6.2-12.0); Monocyte# 0.58 X10^3/uL; Monocyte% 9.8 % (0-10); NRBC Flagged by Analyzer 0 % (0-5); Neutrophil # 3.44 X10^3/uL (2.7-7.7); Neutrophil % 58.4 % (47-70); Platelet Count 204 K/mm3 (150-450); RBC Distribution Width CV 14.3 % (11.6-14.6); RBC Distribution Width SD 52.1 fl (35.1-43.9); Red Blood Count 4.02 M/mm3 (4.6-6.2); White Blood Count 5.9 K/mm3 (4.4-11.0)
[2023-09-27] MEDS: Budesonide Respules 0.5 MG/2 ML AMPUL.NEB. INHALATION (07:20)
[2023-09-27] MEDS: Ipratropium/Albuterol Sulfate 3 ML AMPUL.NEB INHALATION ×3 (07:20→19:14)
[2023-09-27 07:38] LABS: Anion Gap 3 (5-15); BUN 23 mg/dL (7-18); BUN/Creat Ratio 16.1 RATIO (10-20); Calcium,Total 9.2 mg/dL (8.5-10.1); Chloride 108 mmol/L (98-107); Creatinine, Serum 1.43 mg/dL (0.70-1.30); EST Glomerular Filtration Rate 52 mL/min (>60); Est Glom Filt Rate - Afr Amer 62 mL/min (>60); Estimated Creatinine Clearance 47.54 ml/min; Glucose 104 mg/dL (74-106); Potassium 4.9 mmol/L (3.5-5.1); Sodium Level 136 mmol/L (136-145)
--- NOTE | 2023-09-27 07:38 | PN.HOSP_ITS ---
Reason for Visit Reason for Visit: Diagnoses Bronchopneumonia, unspecified organism (09/26/23) Hypoxemia (09/26/23) Objective Data Objective Data Vital Signs: Vital Signs Temp Pulse Resp BP Pulse Ox O2 Del Method O2 Flow Rate 97.3 F L 67 18 111/56 L 97 Nasal Cannula 2 09/27/23 05:00 09/27/23 05:00 09/27/23 05:00 09/27/23 05:00 09/27/23 05:00 09/27/23 05:53 09/27/23 05:53 Oxygen Flow Rate (L/min) 2 Oxygen Delivery Method Nasal Cannula Weight: 193 lb 5.526 oz Body Mass Index (BMI) 32.1 Intake & Output: Intake and Output for Last 24 Hours 09/25/23 09/26/23 09/27/23 23:59 23:59 23:59 Intake Total 1305 / 1305 Balance 1305 / 1305 Lab / Micro Data 09/27/23 06:51 09/27/23 06:51 Labs: Laboratory Results - last 24 hr 09/26/23 20:57: WBC 6.9, RBC 4.26 L, Hgb 13.4, Hct 41.6, MCV 97.7 H, MCH 31.5, MCHC 32.2, RDW Std Deviation 52.0 H, RDW Coeff of [place] 14.4, Plt Count 235, MPV 9.7, Immature Gran % (Auto) 0.700, Neut % (Auto) 53.7, Lymph % (Auto) 30.9, [place] % (Auto) 9.2, Eos % (Auto) 4.2, Baso % (Auto) 1.3 H, Absolute Neuts (auto) 3.7, Absolute Lymphs (auto) 2.14, Nucleated RBC % 0, Sodium 136, Potassium 4.6, Chloride 105, Carbon Dioxide 28.0, Anion Gap 3 L, BUN 24 H, Creatinine 1.70 H, Estim Creat Clear Calc 39.53, Est GFR (MDRD) Af Dorita r 51 L, Est GFR (MDRD) Non-Af 42 L, BUN/Creatinine Ratio 14.1, Glucose 148 H, Calcium 9.7, Troponin I High Sens 7, B-Natriuretic Peptide 12.4 09/27/23 06:51: WBC 5.9, RBC 4.02 L, Hgb 12.5 L, Hct 39.6 L, MCV 98.5 H, MCH 31.1, MCHC 31.6 L, RDW Std Deviation 52.1 H, RDW Coeff of [place] 14.3, Plt Count 204, MPV 9.9, Immature Gran % (Auto) 0.800, Neut % (Auto) 58.4, Lymph % (Auto) 25.4, [place] % (Auto) 9.8, Eos % (Auto) 4.6, Baso % (Auto) 1.0, Absolute Neuts (auto) 3.4, Absolute Lymphs (auto) 1.50, Nucleated RBC % 0 Micro: Microbiology 09/26/23 21:31 Mucosa - Nose SARS-CoV-2, Influenza & RSV (PCR) - Final Radiography Diagnostic Testing: Radiology Impression Chest X-Ray 09/26/23 21:12 IMPRESSION: No radiographic evidence of acute cardiopulmonary disease. Electronically Signed: Duane Carson DO Leslie at 21:28 EDT , Chest CTA 09/26/23 22:03 IMPRESSION: 1. No evidence of pulmonary artery embolus. 2. Subtle lobulations of the hepatic capsule suggesting cirrhosis. 3. Findings suggestive of a bronchopneumonia on the right. Electronically Signed: Duane MendosaChandler Nelson DO at 23:06 EDT , Physical Exam Narrative Seen and examined. Patient main complaint was shortness of breath on exertion and hypoxia on walking. Has chronic cough from COPD with sputum production in the morning mainly white about half teaspoon but denies any change in severity or consistency of his cough/sputum recently. No fever. Denies chest pain/pressure. Denies CAD or cardiac stents or history of CHF Physical exam General: Alert, Oriented x3, Cooperative HEENT: Atraumatic, PERRLA, EOMI, Normocephalic Oral: Oral mucosa dry. No Gingival or Mucosal Lesions/ Ulcerations Neck: Supple, No JVD, Negative Carotid Bruits Chest wall/Lungs: Air entry diminished in bilateral lung bases. Bilateral expiratory rhonchi and wheezing. On 2 L of oxygen Cardiovascular: Regular rate, Regular Rhythm, Normal S1, Normal S2, No M/G/R Abdomen: Bowel Sounds Present, Soft, Non Tender, Non-Distended : No dysuria. No renal angle tenderness. No suprapubic tenderness. Extremities: No edema, Capillary Refill Less than 3 Seconds Skin: No rashes, No breakdown Musculoskeletal: No tenderness in bilateral knees, chronic degenerative arthritis. Neurological: Cranial nerves II-XII grossly intact, DTR 2+/4. No acute focal neurological deficit. Psych/Mental Status: Normal Affect, Appropriate. Assessment & Plan Assessment/Plan (1) Bronchopneumonia: (2) Hypoxia: PLAN: Plan 72-year-old male admitted with worsening of SOB, dyspnea on exertion from walking to bathroom/within home. Patient has abdominal swelling but no lower extremity edema. Denies history of CHF but history of COPD/asthma. No fever or chills 1. COPD exacerbation from RML/RLL bronchopneumonia: Patient is being admitted in PCU. Chest CT images individually reviewed. Scattered alveolar opacity in RML and RLL but no significant large consolidation. No mass. No pleural effusion or thickening or pneumothorax.Peribronchial thickening of RML and RLL. On IV ceftriaxone and azithromycin. Patient is being managed on scheduled bronchodilator, IV Solu-Medrol, Mucinex, incentive spirometry and Pep. 2. Hypoxia: Patient not on home oxygen but checks his pulse ox. He states it was 80% on walking and gets a little tired/dyspneic walking within the home. 3. Hypertension?continue routine home medication 4. Diabetes melitis type II?continue routine home regimen. Glucose is controlled but likely to go up on IV Solu-Medrol. Accu-Chek before meals and at bedtime insulin coverage Humalog sliding scale. 5. DVT prophylaxis?low molecular weight heparin Clinical Impression(s) from Imaging Studies Chest X-Ray 09/26/23 21:12 IMPRESSION: No radiographic evidence of acute cardiopulmonary disease. Chest CTA 09/26/23 22:03 IMPRESSION: 1. No evidence of pulmonary artery embolus. 2. Subtle lobulations of the hepatic capsule suggesting cirrhosis. 3. Findings suggestive of a bronchopneumonia on the right. Charges/Coding Visit Charges Inpatient E&M: 10764 Subs Hosp L2
[2023-09-27] MEDS: HYDROcodone Bitartrate/Apap 5/325 Tablet PO ×4 (08:23→22:18)
[2023-09-27] MEDS: Pioglitazone Hydrochloride 45 MG Tablet PO (08:27)
[2023-09-27] MEDS: metFORMIN HCl 500 MG Tablet PO ×2 (09:34→21:28)
--- NOTE | 2023-09-27 10:40 | CASEMGMT ---
RN CM Face to Face with patient for initial transition planning/care coordination assessment. RN CM introduced self and role at [facility]. Patient lying in bed, alert and oriented. Patient willing to participate in assessment and is able to answer all questions appropriately. Care providers, pharmacy, and demographics verified. PCP: Juan Jose Specialists: Rudolph Perera, project controls specialist [facility]: yes Living Will/HPOA: none LNOK: sister Living Arrangements: Patient lives alone in a single story home with 1 step to enter. Patient states he is independent at home. Transportation: self, sister at times DME/HHC: Patient has cane, crutches, glucometer with supplies. No previous HHC or SNF. Patient wishes to discharge home, denies need for home health at this time. Patient states he has no further needs or concerns at this time. CM to follow for discharge planning needs that may arise. Disposition Plan: Patient to discharge home with family support and follow-up plans in place. Fartun MATHEW, RN, CM
[2023-09-27 12:23] LABS: Bedside Glucose 121 mg/dL (74-106)
[2023-09-27] MEDS: 0.9% Saline Lock 10 ML Syringe IV (13:17)
[2023-09-27] MEDS: Nicotine Polacrilex 2 MG GUM PO ×3 (14:08→21:00)
[2023-09-27 16:11] LABS: Bedside Glucose 143 mg/dL (74-106)
[2023-09-27] MEDS: amLODIPine 5 MG Tablet PO (21:00)
[2023-09-27] MEDS: Ceftriaxone 1 GM/50 ML BAG IV (21:11)
[2023-09-27 21:38] LABS: Bedside Glucose 269 mg/dL (74-106)
[2023-09-27] MEDS: Insulin Lispro 100 UNIT/ML INSULN.PEN SC (22:19)
[2023-09-28 02:50] VITALS: BP 130/80; PULSE 85; RESP 17; TEMP 36.6; O2SAT 91
[2023-09-28 03:47] VITALS: O2SAT 92
[2023-09-28] MEDS: HYDROcodone Bitartrate/Apap 5/325 Tablet PO ×2 (04:40→09:36)
[2023-09-28] MEDS: Nicotine Polacrilex 2 MG GUM PO (04:42)
[2023-09-28 04:48] VITALS: BP 137/83; PULSE 90; RESP 17; TEMP 36.6; O2SAT 93
[2023-09-28] MEDS: Insulin Lispro 100 UNIT/ML INSULN.PEN SC (06:34)
[2023-09-28 06:55] VITALS: PULSE 85; RESP 20; O2SAT 93
[2023-09-28] MEDS: Ipratropium/Albuterol Sulfate 3 ML AMPUL.NEB INHALATION (06:55)
[2023-09-28 06:56] LABS: Bedside Glucose 265 mg/dL (74-106)
--- NOTE | 2023-09-28 07:46 | PCM.DC ---
Discharge Instructions Diet Discharge Diet: Low fat / Low cholesterol and 1800 Calorie Control Diet Activity Discharge Activity: Return to Normal Activity Weight Bearing Status: Weight bearing as tolerated Dressing / Incision Call your doctor if you observe: Fever of 101 or Higher, Coldness, Increased Pain, Numbness or Tingling, Change in Color, Inability to urinate, Inability to have a bowel movement, Shortness of breath, Dizziness, Fainting spells, Swelling in the ankles, Chest pain, Prolonged hiccupping, Increased palpitations (irregular heartbeat) and Calf discomfort Follow Up Care When: IN 2 WEEKS Test Results: Test results from this visit will be discussed in further detail at your follow-up appointment, if applicable. Discharge Plan Admission Admit Date/Time: 09/26/23 23:45 Primary Reason for Your Visit: COPD exacerbation from viral pneumonia Attending Provider: Demarco Hernandes Primary Care Provider: Marco Antonio Ingram Consulting Providers: Jaiden Weathers Instructions Additional Instructions / Restrictions: Patient follows [facility] print color matcher Dr. Brandy Perera advised to follow-up in 2 to 3 weeks Discharge Orders/Prescriptions Prescriptions: New prednisone 20 mg tablet 40 mg PO DAILY 5 Days Qty: 10 0RF Continued metformin 500 MG tablet 500 mg PO BID amlodipine 5 MG tablet 5 mg PO DAILY hydrocodone-acetaminophen 1 EACH tablet 1 ea PO Q4H PRN (Reason: Pain) albuterol sulfate [Ventolin HFA] 1 INHALER inhaler 1 puff inhalation Q4H PRN PRN (Reason: Wheezing) valsartan 160 MG tablet 160 mg PO DAILY pioglitazone 45 mg tablet 45 mg PO DAILY fluticasone propion-salmeterol [Advair HFA] 230-21 mcg/actuation HFA aerosol inhaler 2 puff inhalation BID Spiriva Respimat 2.5 mcg/actuation mist 2 puff inhalation DAILY Referrals / Follow Up: Marco Antonio Ingram MD [Primary Care Provider] - Within 2 Weeks Disposition Disposition (needs filled in before D/C Order can be placed): Home, Self Care
[2023-09-28] MEDS: Pioglitazone Hydrochloride 45 MG Tablet PO (08:02)
--- NOTE | 2023-09-28 08:48 | PCM.DC.SUM ---
Providers Date of Admission: 09/26/23 Date of Discharge: 09/28/23 Primary Care Physician: Dr. Marco Antonio Ingram MD Reason For Visit: COMMUNITY ACQUIRED PNEUMONIA Diagnosis Discharge Diagnosis (1) Bronchopneumonia: Status: Acute Code(s): J18.0 - Bronchopneumonia, unspecified organism (2) Hypoxia: Status: Acute Code(s): R09.02 - Hypoxemia Plan 72-year-old male admitted with worsening of SOB, dyspnea on exertion from walking to bathroom/within home. Patient has abdominal swelling but no lower extremity edema. Denies history of CHF but history of COPD/asthma. No fever or chills. Patient main complaint was shortness of breath on exertion and hypoxia on walking. Has chronic cough from COPD with sputum production in the morning mainly white about half teaspoon but denies any change in severity or consistency of his cough/sputum recently. 1. COPD exacerbation from RML/RLL bronchopneumonia: Patient is being admitted in PCU. Chest CT images individually reviewed. Scattered alveolar opacity in RML and RLL but no significant large consolidation. No mass. No pleural effusion or thickening or pneumothorax.Peribronchial thickening of RML and RLL. On IV ceftriaxone and azithromycin. Patient is being managed on scheduled bronchodilator, IV Solu-Medrol, Mucinex, incentive spirometry and Pep. 5: Pneumonia workup shows adenovirus and rhinovirus. Therefore it is viral pneumonia. CT imaging also suggestive of viral pneumonia. Patient does not need antibiotic. Discharged on steroid burst therapy,prednisone 40 mg daily for 5 days. Patient has inhalers at home and follows [facility] director of occupational therapy Dr. Brandy Perera advised to follow in 2 weeks. Home oxygen qualification test 2. Hypoxia: Patient not on home oxygen but checks his pulse ox. He states it was 80% on walking and gets a little tired/dyspneic walking within the home. 5: Hypoxia resolved. 3. Hypertension?continue routine home medication 4. Diabetes melitis type II?continue routine home regimen. Glucose is controlled but likely to go up on IV Solu-Medrol. Accu-Chek before meals and at bedtime insulin coverage Humalog sliding scale. 5. JHON on CKD stage IIIb probably prerenal: Patient baseline creatinine runs around 1.40. Admitted with creatinine 1.7 improved to 1.43. JHON resolved. 6.. DVT prophylaxis?low molecular weight heparin Clinical Impression(s) from Imaging Studies Chest X-Ray 09/26/23 21:12 IMPRESSION: No radiographic evidence of acute cardiopulmonary disease. Chest CTA 09/26/23 22:03 IMPRESSION: 1. No evidence of pulmonary artery embolus. 2. Subtle lobulations of the hepatic capsule suggesting cirrhosis. 3. Findings suggestive of a bronchopneumonia on the right. Medications at Discharge Home Medications albuterol sulfate 90 mcg/actuation aerosol inhaler (Ventolin HFA) 1 puff inhalation Q4H PRN PRN Wheezing 08/16/17 amlodipine 5 mg tablet 5 mg PO DAILY 08/16/17 hydrocodone 10 mg-acetaminophen 325 mg tablet 1 ea PO Q4H PRN Pain 08/16/17 metformin 500 mg tablet 500 mg PO BID 08/16/17 valsartan 160 mg tablet 160 mg PO DAILY 08/16/17 fluticasone propionate 230 mcg-salmeterol 21 mcg/actuation HFA inhaler (Advair HFA) 2 puff inhalation BID 09/26/23 pioglitazone 45 mg tablet 45 mg PO DAILY 09/26/23 tiotropium bromide 2.5 mcg/actuation mist for inhalation (Spiriva Respimat) 2 puff inhalation DAILY 09/26/23 prednisone 20 mg tablet 40 mg (2 x 20 mg) PO DAILY 5 days #10 tabs 09/28/23 Physical Exam Narrative Seen and examined. Shortness of breath has improved. Hypoxia resolved. Blood pressure is controlled. Patient wants to go home and actually wanted to go home yesterday but he stayed. Dyspnea on exertion has resolved. No fever. Denies chest pain/pressure. Denies CAD or cardiac stents or history of CHF Physical exam General: Alert, Oriented x3, Cooperative HEENT: Atraumatic, PERRLA, EOMI, Normocephalic Oral: Oral mucosa dry. No Gingival or Mucosal Lesions/ Ulcerations Neck: Supple, No JVD, Negative Carotid Bruits Chest wall/Lungs: Air entry diminished in bilateral lung bases. Bilateral expiratory rhonchi and wheezing. On 2 L of oxygen Cardiovascular: Regular rate, Regular Rhythm, Normal S1, Normal S2, No M/G/R Abdomen: Bowel Sounds Present, Soft, Non Tender, Non-Distended : No dysuria. No renal angle tenderness. No suprapubic tenderness. Extremities: No edema, Capillary Refill Less than 3 Seconds Skin: No rashes, No breakdown Musculoskeletal: No tenderness in bilateral knees, chronic degenerative arthritis. Neurological: Cranial nerves II-XII grossly intact, DTR 2+/4. No acute focal neurological deficit. Psych/Mental Status: Normal Affect, Appropriate. Weight / BMI Weight Weight: 193 lb 5.526 oz Body Mass Index (BMI) 32.1 ABG / Lab / Microbiology Data 09/27/23 06:51 09/27/23 06:51 Laboratory: Laboratory Results - last 24 hr 09/27/23 12:05: POC Glucose 121 H 09/27/23 15:52: POC Glucose 143 H 09/27/23 21:10: POC Glucose 269 H 09/28/23 06:33: POC Glucose 265 H Microbiology: Microbiology 09/27/23 10:12 Mucosa - Nose Respiratory Panel (PCR) - Final Adenovirus Rhinovirus 09/26/23 21:31 Mucosa - Nose SARS-CoV-2, Influenza & RSV (PCR) - Final D/C Instructions Discharge Diet: Low fat / Low cholesterol and 1800 Calorie Control Diet Weight Bearing Status: Weight bearing as tolerated Call your doctor if you observe: Fever of 101 or Higher, Coldness, Increased Pain, Numbness or Tingling, Change in Color, Inability to urinate, Inability to have a bowel movement, Shortness of breath, Dizziness, Fainting spells, Swelling in the ankles, Chest pain, Prolonged hiccupping, Increased palpitations (irregular heartbeat) and Calf discomfort When: IN 2 WEEKS Meaningful Use Info Meaningful Use Meaningful Use Diagnoses (Choose all that apply): None applicable Ischemic Stroke Statin Dosing Therapy Reference: STATIN DOSE THERAPY REFERENCE: * Patients > 75 years receive moderate or high dose statin therapy. * Patients 75 years or YOUNGER should receive HIGH intensity statin dose unless contraindicated. You will be required to document reason for non-treatment if statin daily dose does not meet guidelines. HIGH DOSE STATIN THERAPY DAILY Atorvastatin > than or = to 40 mg Rosuvastatin > than or = to 20 mg Amlodipine + Atorvastatin > than or = to 2.5/40 mg Ezetimibe + Simvastatin 10/80 mg Simvastatin 80mg Discharge Plan Admission Admit Date/Time: 09/26/23 23:45 Primary Reason for Your Visit: COPD exacerbation from viral pneumonia Attending Provider: Demarco Hernandes Primary Care Provider: Marco Antonio Ingram Consulting Providers: Jaiden Weathers Instructions Additional Instructions / Restrictions: Patient follows [facility] director of occupational therapy Dr. Brandy Perera advised to follow-up in 2 to 3 weeks Discharge Orders/Prescriptions Prescriptions: New prednisone 20 mg tablet 40 mg PO DAILY 5 Days Qty: 10 0RF Continued metformin 500 MG tablet 500 mg PO BID amlodipine 5 MG tablet 5 mg PO DAILY hydrocodone-acetaminophen 1 EACH tablet 1 ea PO Q4H PRN (Reason: Pain) albuterol sulfate [Ventolin HFA] 1 INHALER inhaler 1 puff inhalation Q4H PRN PRN (Reason: Wheezing) valsartan 160 MG tablet 160 mg PO DAILY pioglitazone 45 mg tablet 45 mg PO DAILY fluticasone propion-salmeterol [Advair HFA] 230-21 mcg/actuation HFA aerosol inhaler 2 puff inhalation BID Spiriva Respimat 2.5 mcg/actuation mist 2 puff inhalation DAILY Referrals / Follow Up: Marco Antonio Ingram MD [Primary Care Provider] - Within 2 Weeks Disposition Disposition (needs filled in before D/C Order can be placed): Home, Self Care Charges/Coding Visit Charges Inpatient E&M: 89022 Disch Hosp >30min
[2023-09-28] MEDS: metFORMIN HCl 500 MG Tablet PO (09:36)
[2023-09-28 09:38] VITALS: O2SAT 90; O2SAT 94
--- NOTE | 2023-09-28 10:11 | CASEMGMT ---
Patient has order for discharge. Patient does not qualify for home oxygen. RN CM in to discuss needs at discharge. Patient denies needs or help at discharge. Patient had no further questions or concerns.
[2023-09-28 10:48] VITALS: BP 137/83; PULSE 90; RESP 17; TEMP 36.6; O2SAT 93
--- NOTE | 2023-09-28 11:31 | PHA.DC_ITS ---
Pharmacy [facility] has performed discharge medication reconciliation and counseling for this patient. 1. PREDNISONE 40MG PO DAILY X 5 DAYS The patient's discharge medication list was reviewed for discrepancies and discrepancies were resolved. The patient was counseled on the following discharge medications and changes in medications for homegoing were reviewed. The Reason for Use, instructions for use, and potential side effects were reviewed for all new medications. The patient's questions regarding all of their medications were answered. The patient was able to verbally demonstrate an understanding of their discharge medications. Medications at Discharge Home Medications albuterol sulfate 90 mcg/actuation aerosol inhaler (Ventolin HFA) 1 puff inhalation Q4H PRN PRN Wheezing 08/16/17 amlodipine 5 mg tablet 5 mg PO DAILY 08/16/17 hydrocodone 10 mg-acetaminophen 325 mg tablet 1 ea PO Q4H PRN Pain 08/16/17 metformin 500 mg tablet 500 mg PO BID 08/16/17 valsartan 160 mg tablet 160 mg PO DAILY 08/16/17 fluticasone propionate 230 mcg-salmeterol 21 mcg/actuation HFA inhaler (Advair HFA) 2 puff inhalation BID 09/26/23 pioglitazone 45 mg tablet 45 mg PO DAILY 09/26/23 tiotropium bromide 2.5 mcg/actuation mist for inhalation (Spiriva Respimat) 2 puff inhalation DAILY 09/26/23 prednisone 20 mg tablet 40 mg (2 x 20 mg) PO DAILY 5 days #10 tabs 09/28/23
== END 2023-09-28 11:41 | disposition home or self-care (01) | DRG 190 ==
LOC: ED 23:50 → PCU 09-27 00:01
PROVIDERS: Admitting Provider Family Medicine; Emergency Provider Student in an Organized Health Care Education/Training Program; PCP Family Medicine; Visit Provider Internal Medicine
DX: J44.1 Chronic obstructive pulmonary disease with (acute) exacerbation (principal); J18.0 Bronchopneumonia, unspecified organism; N17.9 Acute kidney failure, unspecified; E11.22 Type 2 diabetes mellitus with diabetic chronic kidney disease; J44.0 Chronic obstructive pulmonary disease with (acute) lower respiratory infection; N18.32 Chronic kidney disease, stage 3b; I12.9 Hypertensive chronic kidney disease with stage 1 through stage 4 chronic kidney disease, or unspecified chronic kidney disease; F17.210 Nicotine dependence, cigarettes, uncomplicated; Z79.51 Long term (current) use of inhaled steroids; Z79.84 Long term (current) use of oral hypoglycemic drugs; R09.02 Hypoxemia
CPT/HCPCS: 71045; 71275; 80048; 82962; 83880; 84484; 85025; 87070; 87205; 87631; 87633; 93005; 94640; 99285; J7030; Q9967; A4216

== ENCOUNTER → 2025-02-12 | Outpatient (CLI) | payer MEDICARE, MEDICAID, SELFPAY ==
--- NOTE | 2025-02-12 14:11 | RAD_ITS ---
PROCEDURE: KNEE 4 OR MORE VIEWS 02/12/2025 REASON FOR EXAM: KNEE PAIN TECHNIQUE: Procedure Code: RADKN Modality: DX Procedure: KNEE 4 OR MORE VIEWS Laterality: Right knee COMPARISON: None FINDINGS: Bones: No fracture. No suspicious bone lesion. Joints: Normal alignment. Mild degenerative changes. Effusion: No effusion. Soft tissues: Soft tissues are unremarkable. Other: RAD/Knee 4 or More Views IMPRESSION: NO EFFUSION ACUTE FRACTURE OR DISLOCATION. Reading Location: [place] [id number]
--- NOTE | 2025-02-12 14:11 | RAD_ITS ---
PROCEDURE: L/S SPINE MIN 4 VIEWS 02/12/2025 REASON FOR EXAM: LUMBAR SPONDYLOSIS TECHNIQUE: Procedure Code: RADSPLS Modality: DX Procedure: L/S SPINE MIN 4 VIEWS COMPARISON: None FINDINGS: Curvature: Advanced degenerative changes of lumbar spine. There is reduced disc height space between multiple lumbar vertebra. Other findings: Vascular calcification are visualized. RAD/L/S Spine Min 4 Views IMPRESSION: Multilevel degenerative changes of thoracolumbar spine. If there is clinical s uspicion for cord compression MRI lumbar spine can be obtained. Reading Location: [id number]
[2025-02-12 16:41] LABS: Barbiturate Urine NEGATIVE (< 200 ng/mL); Benzodiazepine Urine NEGATIVE (< 200 ng/mL); PCP Urine NEGATIVE (< 25 ng/mL); THC Urine NEGATIVE (< 50 ng/mL)
== END | disposition home or self-care (01) ==
LOC: RAD 13:54
PROVIDERS: PCP Family Medicine; Referring Provider Anesthesiology; Visit Provider Anesthesiology
DX: F11.20 Opioid dependence, uncomplicated (principal); M25.561 Pain in right knee; M47.816 Spondylosis without myelopathy or radiculopathy, lumbar region
CPT/HCPCS: 72110; 73564; 80307